=== PATIENT | female | born 1990 | race African-American/Black ===

== ENCOUNTER 2019-09-05 12:22 | Emergency (ER) | payer SELFPAY ==
[~2019-09-05] VITALS: Ht 167.6 cm; Wt 68.0 kg
[2019-09-05 12:22] VITALS: BP 153/85
--- NOTE | 2019-09-05 12:38 | Emergency Room Report ---
History of Present Illness General Chief Complaint: Abdominal Pain Source: Patient (Andrew Mcduffie MD) Present Illness HPI Disclaimer: Please note that this report is being documented using [employer] technology. This can lead to erroneous entry secondary to incorrect interpretation by the dictating instrument. HPI: 28-year-old female presents for abdominal pain. She arrives by EMS. States approximately 2 AM this morning she began to feel very sharp/cramping, 10 /10 pain in the lower abdomen bilaterally. Sometimes radiates to the back. Does not radiate down the legs. Reports vomiting throughout the morning unable to hold down solids or liquids. Having diarrhea as well. She reports eating some [place] food late last night. States she started her menses last night and sometimes will have significant pain with her menstrual cycle. Denies vaginal discharge. She has been worked up multiple times but states always has been negative for endometriosis, abscess, ectopic , kidney stones. States she had a bilateral tubal ligation years ago. She is visiting from [place]. PMH: Reviewed PSH: Bilateral tubal ligation, orthopedic shoulder and wrist repair Allergies: Hydrocodone, ibuprofen Social Hx: Denies drug or alcohol abuse (Andrew Mcduffie MD) Allergies: Coded Allergies: HYDROCODONE (Verified Allergy, Unknown, 09/05/19) IBUPROFEN (Verified Allergy, Unknown, 09/05/19) COVID-19 Screening Contact w/high risk pt: No Recent Travel to affected area: No Experienced COVID-19 symptoms?: No COVID-19 Testing performed [employer]CHOOL [employer] DETAILER: No (Andrew Mcduffie MD) Patient History Now: No (Andrew Mcduffie MD) Review of Systems All Other Systems: negative except mentioned in HPI (Andrew Mcduffie MD) Physical Exam Vital Signs Date Time Temp Pulse Resp B/P (MAP) Pulse Ox O2 Delivery O2 Flow Rate FiO2 09/05/19 12:17 98.6 82 18 153/85 (107) 99 Room Air General: Awake and alert, uncomfortable, writhing in pain HEENT: NC/AT. EOMI. Cardiovascular: RRR. S1 and S2 normal. No murmur appreciated Resp: Normal work of breathing. No cough, wheezing or crackles appreciated Abdomen: Abdomen is soft, nondistended. Tender palpation in the periumbilical region as well as the suprapubic and lower quadrants bilaterally. Cannot assess for rebound Skin: Intact. No abrasions, laceration or rash over the exposed skin MSK: Normal tone and bulk. Moving all extremities. No obvious deformity. Neuro: Awake and alert. Mentating appropriately. (Andrew Mcduffie MD) Medical Decision Making Diagnostic Impression: Primary Impression: Abdominal pain ER Course There is a 28-year-old female presenting for evaluation of sudden onset abdominal pain beginning early this morning. Differential includes was not limited to gastritis, gastroenteritis, pancreatitis, cholecystitis, bowel obstruction, food poisoning, appendicitis, abscess, pyelonephritis, nephrolithiasis, mesenteric ischemia, endometriosis, ectopic , aortic dissection, aortic aneurysm to name a few. (Andrew Mcduffie MD) ER Course With the patient's history and examination, multiple differentials considered, including but not limited to , ectopic , ovarian torsion, gastritis, cholecystitis, pancreatitis, appendicitis Please refer to the note for the initial history exam and presentation At this time awaiting CT imaging and ultrasound was also added for further evaluation CT imaging of the abdomen does not show any acute process Ultrasound shows good flow to both ovaries Patient resting comfortably at bedside upon repeat evaluation Blood work also at baseline levels there is some evidence of blood in the urine patient is on her menstrual cycle Given the lack of any other emergent finding patient is stable to have appropriate outpatient follow-up she does report that she has had multiple examinations and evaluations in the past without significant finding I encouraged her to Set up with primary physician who can be 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 and review all work-ups and imaging in order to prevent repeat examinations as well Patient feels better and will have close outpatient follow-up Labs Test 09/05/19 12:30 09/05/19 13:31 White Blood Count 12.7 K/UL (4.8-10.8) Red Blood Count 4.72 M/UL (4.20-5.40) Hemoglobin 14.3 G/DL (12.0-16.0) Hematocrit 42.0 % (37.0-47.0) Mean Corpuscular Volume 89 FL (80-99) Mean Corpuscular Hemoglobin 30.3 PG (27.0-31.0) Mean Corpuscular Hemoglobin Concent 34.1 G/DL (32.0-36.0) Red Cell Distribution Width 12.3 % (11.6-14.8) Platelet Count 182 K/UL (150-450) Mean Platelet Volume 9.8 FL (6.5-10.1) Neutrophils (%) (Auto) % (45.0-75.0) Lymphocytes (%) (Auto) % (20.0-45.0) Monocytes (%) (Auto) % (1.0-10.0) Eosinophils (%) (Auto) % (0.0-3.0) Basophils (%) (Auto) % (0.0-2.0) Differential Total Cells Counted 100 Neutrophils % (Manual) 84 % (45-75) Lymphocytes % (Manual) 10 % (20-45) Monocytes % (Manual) 6 % (1-10) Eosinophils % (Manual) 0 % (0-3) Basophils % (Manual) 0 % (0-2) Band Neutrophils 0 % (0-8) Platelet Estimate Adequate Platelet Morphology Normal Red Blood Cell Morphology Normal Prothrombin Time 10.8 SEC (9.30-11.50) Prothromb Time International Ratio 1.0 (0.9-1.1) Activated Partial Thromboplast Time 27 SEC (23-33) Sodium Level 141 MMOL/L (136-145) Potassium Level 3.6 MMOL/L (3.5-5.1) Chloride Level 103 MMOL/L (98-107) Carbon Dioxide Level 26 MMOL/L (21-32) Anion Gap 12 mmol/L (5-15) Blood Urea Nitrogen 5 mg/dL (7-18) Creatinine 0.9 MG/DL (0.55-1.30) Estimat Glomerular Filtration Rate > 60 mL/min (>60) Glucose Level 103 MG/DL (74-106) Calcium Level 9.1 MG/DL (8.5-10.1) Total Bilirubin 0.3 MG/DL (0.2-1.0) Aspartate Amino Transf (AST/SGOT) 19 U/L (15-37) Alanine Aminotransferase (ALT/SGPT) 18 U/L (12-78) Alkaline Phosphatase 63 U/L (46-116) Total Protein 8.4 G/DL (6.4-8.2) Albumin 4.3 G/DL (3.4-5.0) Globulin 4.1 g/dL Albumin/Globulin Ratio 1.0 (1.0-2.7) Lipase 129 U/L (73-393) Urine Color Red Urine Appearance Slightly cloudy Urine pH 8 (4.5-8.0) Urine Specific [place] 1.010 (1.005-1.035) Urine Protein 2+ (NEGATIVE) Urine Glucose (UA) Negative (NEGATIVE) Urine Ketones 3+ (NEGATIVE) Urine Blood 5+ (NEGATIVE) Urine Nitrite Negative (NEGATIVE) Urine Bilirubin Negative (NEGATIVE) Urine Urobilinogen Normal MG/DL (0.0-1.0) Urine Leukocyte Esterase 2+ (NEGATIVE) Urine RBC Tntc /HPF (0 - 2) Urine WBC 10-15 /HPF (0 - 2) Urine Squamous Epithelial Cells Few /LPF (NONE/OCC) Urine Bacteria Few /HPF (NONE) Urine HCG, Qualitative Negative (NEGATIVE) Urine Opiates Screen Positive (NEGATIVE) Urine Barbiturates Screen Negative (NEGATIVE) Phencyclidine (PCP) Screen Negative (NEGATIVE) Urine Amphetamines Screen Negative (NEGATIVE) Urine Benzodiazepines Screen Negative (NEGATIVE) Urine Cocaine Screen Negative (NEGATIVE) Urine Marijuana (THC) Screen Positive (NEGATIVE) (Ayad Cho DO) CT/MRI/US Diagnostic Results CT/MRI/US Diagnostic Results : Impression CT abdomen pelvisImpression: Limited evaluation of the GI tract, due to lack of enteric contrast administration Single focally prominent mid abdominal small bowel loop, of doubtful significance Essentially unremarkable exam otherwise. No definite acute or significant abnormality demonstrated. Small amount of free pelvic fluid, presumably physiologic (Ayad Cho DO) Last Vital Signs Date Time Temp Pulse Resp B/P (MAP) Pulse Ox O2 Delivery O2 Flow Rate FiO2 09/05/19 12:17 98.6 82 18 153/85 (107) 99 Room Air (Andrew Mcduffie MD) Pelvic ultrasound appropriate flow to both ovaries Status: improved (Ayad Cho DO) Disposition: HOME, SELF-CARE Condition: Improved Scripts Tramadol Hcl* (ULTRAM*) 50 Mg Tablet 50 MG ORAL Q6H PRN for For Pain, #20 TAB 0 Refills Prov: Ayad Cho DO 09/05/19 Additional Instructions: Patient is provided with the discharge instructions notified to follow up with primary doctor in the next 2-3 days otherwise return to the er with any worsening symptoms. Please note that this report is being documented using [employer] technology. This can lead to erroneous entry secondary to incorrect interpretation by the dictating instrument. Andrew Mcduffie MD Sep 05, 2019 12:38 Ayad Cho DO Sep 05, 2019 15:42
[2019-09-05] MEDS ORDERED: Morphine Sulfate 4mg/ml Inj (IV USE ONLY) IVP ONE (12:45)
[2019-09-05] MEDS ORDERED: Omnipaque-300 100ml vial INJ PRN (12:45)
[2019-09-05 13:09] LABS: HEMOGLOBIN 14.3 G/DL (12.0-16.0); MEAN CORPUSCULAR VOLUME 89 FL (80-99); PLATELET COUNT 182 K/UL (150-450); RED BLOOD COUNT 4.72 M/UL (4.20-5.40); RED CELL DISTRIBUTION WIDTH 12.3 % (11.6-14.8); WHITE BLOOD COUNT 12.7 K/UL (4.8-10.8)
[2019-09-05 13:15] LABS: ANION GAP 12 mmol/L (5-15); BLOOD UREA NITROGEN 5 mg/dL (7-18); CALCIUM 9.1 MG/DL (8.5-10.1); CARBON DIOXIDE 26 MMOL/L (21-32); CHLORIDE 103 MMOL/L (98-107); CREATININE 0.9 MG/DL (0.55-1.30); POTASSIUM 3.6 MMOL/L (3.5-5.1); SODIUM 141 MMOL/L (136-145)
[2019-09-05 13:21] LABS: ALANINE AMINOTRANSFERASE 18 U/L (12-78); ALBUMIN 4.3 G/DL (3.4-5.0); ALKALINE PHOSPHATASE 63 U/L (46-116); ASPARTATE AMINO TRANSFERASE 19 U/L (15-37); BILIRUBIN,TOTAL 0.3 MG/DL (0.2-1.0)
[2019-09-05 14:00] LABS: APPEARANCE,URINE SLIGHTLY CLOUDY; BILIRUBIN, URINE NEGATIVE (NEGATIVE); GLUCOSE, URINE (UA) NEGATIVE (NEGATIVE); KETONES,URINE 3+ (NEGATIVE); LEUKOCYTE ESTERASE ,URINE 2+ (NEGATIVE); NITRITE,URINE NEGATIVE (NEGATIVE); PH,URINE 8 (4.5-8.0); PROTEIN,URINE 2+ (NEGATIVE); UROBILINOGEN,URINE NORMAL MG/DL (0.0-1.0)
[2019-09-05 14:07] LABS: COLOR,URINE RED
--- NOTE | 2019-09-05 15:32 | Diagnostic Imaging Report ---
Clinical Indication: Farhad pain Technique: No oral contrast utilized, per emergency room physician request IV administration nonionic contrast. Venous phase spiral acquisition obtained through the abdomen and pelvis. Multiplanar reconstructions were generated. Total dose length product to 34 mGycm. CTDIvol(s) 5 mGy. Dose reduction achieved using automated exposure control Comparison: none Findings: Lack of enteric contrast limits assessment of the GI tract. The appendix is normal. There is a small amount of fluid in the pelvis. A single mildly prominent small bowel loop is seen in the upper midabdomen. No small bowel distention otherwise. No free intraperitoneal gas. No evidence of colonic diverticulosis or diverticulitis. The distal esophagus, stomach, duodenum are unremarkable. The gallbladder is unremarkable. The liver, bile ducts, pancreas, spleen, adrenals, kidneys are unremarkable. No renal or ureteral calculi, hydronephrosis, nor hydroureter. The bladder is unremarkable. The uterus and ovaries are unremarkable. The included lung bases are clear. The bones are unremarkable. Impression: Limited evaluation of the GI tract, due to lack of enteric contrast administration Single focally prominent mid abdominal small bowel loop, of doubtful significance Essentially unremarkable exam otherwise. No definite acute or significant abnormality demonstrated. Small amount of free pelvic fluid, presumably physiologic The CT scanner at [facility] is accredited by the [employer] and the scans are performed using protocols designed to limit radiation exposure to as low as reasonably achievable to attain images of sufficient resolution adequate for diagnostic evaluation.
[2019-09-05] MEDS ORDERED: TRAMADOL HCL50 MG ORAL (15:39)
[2019-09-05 16:01] VITALS: BP 128/75
--- NOTE | 2019-09-05 18:59 | Diagnostic Imaging Report ---
Indication: Reason For Exam: PAIN Technique: Pelvic pain, negative test, history of tubal ligation Comparison: Transabdominal and transvaginal images of the pelvis. Doppler interrogation of the ovaries Findings: Uterus measures 7.3 cm length by 3 cm AP. Endometrium measures 6 mm thick. No myometrial abnormality. There is some heterogeneity of the endometrium in the lower uterine segment and endocervical canal. The right ovary measures 2.7 cm in length. The left ovary measures 2.7 cm in length. No adnexal mass demonstrated. Trace free fluid is seen in the cul-de-sac. Both ovaries demonstrate normal flow on Doppler imaging Impression: Trace free cul-de-sac fluid Essentially unremarkable exam
== END 2019-09-05 16:04 | disposition home or self-care (01) ==
LOC: EDBD 12:22 → EMR 12:51
DX: R10.30 Lower abdominal pain, unspecified (principal); Z88.6 Allergy status to analgesic agent; R19.7 Diarrhea, unspecified
CPT/HCPCS: 36415; 74177; 76830; 76856; 80053; 80307; 81003; 81025; 83690; 85007; 85025; 85610; 85730; 87086; 96374; 96375; 99284; J2270; J2405; Q9967